=== PATIENT | male | born 2005 | race Caucasian/White ===

== ENCOUNTER 2024-09-16 10:22 | Emergency (ER) | payer SELFPAY ==
[2024-09-16] MEDS: Famotidine 20 MG Tab PO STA (11:05)
[2024-09-16] MEDS: Cetirizine 10 MG Tab PO STA (11:05)
[2024-09-16] MEDS: Triamcinolone Acetonide 40 MG/ML 1 ML SDV INJECT STA (11:05)
== END 2024-09-16 11:37 | disposition home or self-care (01) ==
LOC: MW.ED 10:22
DX: T78.40XA Allergy, unspecified, initial encounter (principal); Z88.0 Allergy status to penicillin; Z75.8 Other problems related to medical facilities and other health care; X58.XXXA Exposure to other specified factors, initial encounter
CPT/HCPCS: 99283; A9270; J3301